=== PATIENT | female | born 1975 | race Caucasian/White ===

== ENCOUNTER 2023-08-02 18:24 | Inpatient (IN) | payer OTHER, SELFPAY ==
[2023-08-02] VITALS (17 sets, daily range): BP systolic 107–196; BP diastolic 72–99; PULSE 67; TEMP 36.6; O2SAT 92–100
--- NOTE | 2023-08-02 18:37 | CT_ITS ---
The [address] [address] Patient Name: HANG DALE MRN: [id number] date: 1975 Sex: F Assigned Patient Location: ER Current Patient Location: ER Accession/Order Number: [id number] Exam Date: 08/02/2023 22:15 Report Date: 08/02/2023 23:50 At the request of: DARON TINEO Procedure: CT abdomen pelvis w con EXAM: CT abdomen pelvis w con HISTORY: Acute upper abdominal pain, nausea, weakness. Colitis COMPARISON: No comparison abdominal imaging available at the time of dictation. TECHNIQUE: Multiple axial views CT abdomen pelvis performed after administration of 100 cc Omnipaque 300 IV contrast. Coronal sagittal reformats. Enteric contrast also administered. FINDINGS: Visualized lung bases demonstrate mild bibasilar linear lung atelectasis. Visualized cardiac apex is unremarkable. Mild hepatic steatosis and hepatomegaly. Gallbladder, pancreas, spleen, adrenal glands, kidneys, underdistended urinary bladder, and other pelvic structures are unremarkable by CT exam. Uterus is not seen or surgically absent. Appendix is not seen. Small hiatal hernia. Stomach is underdistended. No perigastric extraluminal free fluid/free air. Enteric contrast extends to the right lower quadrant ileum. Mild colonic diverticula without pericolonic inflammatory stranding. Moderate amount of gas and stool within the colon. No evidence for small bowel obstruction, large ascites, or free air. Retroperitoneal vasculature is unremarkable. No acute bony abnormality. CT/CT abdomen pelvis w con IMPRESSION: Mild colonic diverticula without pericolonic inflammatory stranding. Moderate amount of gas and stool within the colon. Small hiatal hernia. Stomach is underdistended. No perigastric extraluminal free fluid/free air. Mild hepatic steatosis and hepatomegaly. Electronically authenticated by: THEODORA BAEZ Date: 08/02/2023 23:50
[2023-08-02 19:12] LABS: Basophils Percent Auto 0.4 % (0.2-2.0); Eosinophils Absolute Auto 0.1 10^3/uL (0.0-0.7); Hematocrit 43.6 % (36.0-48.0); Hemoglobin 14.4 g/dL (12.0-16.0); Immature Granulocytes Abs Auto 0.05 10^3/uL (0.00-0.03); Immature Granulocytes Pct Auto 0.5 % (0.0-0.5); Lymphocytes Absolute Auto 2.4 10^3/uL (1.2-3.8); Lymphocytes Percent Auto 22.9 % (20.5-60.0); Mean Corpuscular Hemoglobin 31.7 pg (26.7-34.0); Monocytes Absolute Auto 0.5 10^3/uL (0.3-0.8); Monocytes Percent Auto 4.7 % (1.7-12.0); Neutrophils Absolute Auto 7.5 10^3/uL (1.4-6.5); Neutrophils Percent Auto 70.5 % (43.0-75.0); Platelet Count 237 10^3/uL (150-450); Red Blood Count 4.54 10^6/uL (4.20-5.40); Red Cell Distribution Width 13.5 % (11.0-15.0); White Blood Count 10.6 10^3/uL (4.0-11.0)
[2023-08-02 19:25] LABS: HCG Qualitative NEGATIVE (NEGATIVE)
[2023-08-02 19:31] LABS: Alanine Aminotransferase 12 U/L (14-59); Albumin Globulin Ratio 1.1; Albumin Level 3.9 g/dL (3.4-5.0); Alkaline Phosphatase 57 U/L (46-116); Anion Gap 12.6; Aspartate Amino Transferase 11 U/L (15-37); BUN Creatinine Ratio 14.5; Bilirubin Total 0.4 mg/dL (0.2-1.0); C Reactive Protein <0.50 mg/dL (<=0.50); Calcium 9.7 mg/dL (8.5-10.1); Carbon Dioxide 25.2 mmol/L (21.0-32.0); Chloride 105 mmol/L (98-107); Erythrocyte Sedimentation Rate 31 mm/hr (<=20); Estimated GFR (African America >60 (>=60); Estimated GFR (Non-African Ame >60 (>=60); Globulin 3.6 g/dL; Glucose 93 mg/dL (74-106); Potassium 3.8 mmol/L (3.5-5.1); Sodium 139 mmol/L (136-145); Total Protein 7.5 g/dL (6.4-8.2)
--- NOTE | 2023-08-02 19:34 | ED.GENADUL1 ---
Documented by User: PARVEEN Klein 08/02/23 21:55 HPI HPI - General Adult General Chief complaint: Abdominal Pain Stated complaint: COLLITIS SYMPTOMS Time Seen by Provider: 08/02/23 18:36 Source: patient Mode of arrival: Wheelchair Limitations: no limitations History of Present Illness HPI narrative: Patient is a 48-year-old female with a history of colitis sent to the emergency department by her PCP for evaluation, she was seen in the office immediately prior to arrival for a 2-week history of ongoing issues of abdominal pain and diarrhea consistent with previous colitis exacerbation. She states she has not had a bowel movement in the last 4 to 5 days. She has had no objective fevers. She reports associated vomiting. Most of her pain is in the epigastrium. She has had a previous hysterectomy. No medications taken prior to arrival. Patient was going to be a direct admission for her symptoms but her blood pressure was elevated so she could not be directly admitted. Related Data Home Medications ?Medication ?Instructions ?Recorded ?Confirmed doxepin 50 mg capsule 50 mg PO DAILY 08/02/23 08/02/23 Allergies Allergy/AdvReac Type Severity Reaction Status Date / Time prochlorperazine Allergy Mild tachycardia Verified 08/02/23 18:57 [From Compazine] promethazine [From Phenergan] Allergy Mild tachycardia Verified 08/02/23 18:57 Opioid HPI Opioid Management Most Recent Opioid Data: Last Pain Scale 5 08/02/23 23:11 Review of Systems ROS Constitutional Denies: fever or chills Ears, nose, mouth, and throat Denies: throat pain or nasal congestion Cardiovascular Denies: chest pain Respiratory Denies: shortness of breath or cough Gastrointestinal Reports: abdominal pain, nausea, vomiting, diarrhea and constipation Musculoskeletal Denies: back pain Integumentary/Breast Denies: rash Neurological Denies: headache Hematologic/Lymphatic Denies: easy bruising or easy bleeding Exam Narrative Exam Narrative: Gen.: Awake, alert, in no distress Head: Normocephalic, atraumatic ENT: Moist mucous membranes Respiratory: No respiratory distress, lungs clear bilaterally Cardio: Regular rate and rhythm Gastrointestinal: Abdomen is soft, nondistended and Diffusely tender to palpation with no focal areas of tenderness, erythematous rash under the left pannus consistent with candidal rash. No guarding or rebound on exam Extremities: Moves extremities equally Psych: Normal mood and affect Neuro: No focal neuro deficit Skin: Warm, dry, intact Constitutional Vital Signs, click to edit/add: Last Vital Signs Temp 97.8 F 08/02/23 18:51 Pulse 67 08/02/23 18:51 Resp 18 08/02/23 18:51 BP 107/76 08/02/23 23:31 Pulse Ox 95 08/02/23 20:47 O2 Del Method Room Air 08/02/23 18:51 Course Vital Signs Vital signs: Vital Signs Temperature 97.8 F 08/02/23 18:51 Pulse Rate 67 08/02/23 18:51 Respiratory Rate 18 08/02/23 18:51 Pulse Oximetry 98 08/02/23 18:51 Oxygen Delivery Method Room Air 08/02/23 18:51 Temperature 97.8 F 08/02/23 18:51 Pulse Rate 67 08/02/23 18:51 Respiratory Rate 18 08/02/23 18:51 Blood Pressure 107/76 08/02/23 23:31 Pulse Oximetry 95 08/02/23 20:47 Oxygen Delivery Method Room Air 08/02/23 18:51 Medical Decision Making MDM Narrative Medical decision making narrative: Patient given Dilaudid, Zofran and remedicated with additional Dilaudid, Zofran and Pepcid. Blood pressure has improved. Lab studies are grossly unremarkable. Patient was sent for CT with IV and oral contrast. She tolerated the oral contrast fairly well, CT is pending at this time. Anticipate admission to Dr. Orozco for further evaluation and treatment. 2154: Case is turned over to attending physician at this time. Medical Records Medical records reviewed: Yes I reviewed the patient's medical records Lab Data Lab results reviewed: Yes I reviewed the patient's lab results Labs: Lab Results 08/02/23 08/02/23 Range/Units 18:52 19:30 WBC 10.6 (4.0-11.0) 10^3/uL RBC 4.54 (4.20-5.40) 10^6/uL Hgb 14.4 (12.0-16.0) g/dL Hct 43.6 (36.0-48.0) % MCV 96.0 (81.0-99.0) fL MCH 31.7 (26.7-34.0) pg MCHC 33.0 (29.9-35.2) g/dL RDW 13.5 (11.0-15.0) % Plt Count 237 (150-450) 10^3/uL MPV 12.0 (9.5-13.5) fL Neut % (Auto) 70.5 (43.0-75.0) % Lymph % (Auto) 22.9 (20.5-60.0) % [place] % (Auto) 4.7 (1.7-12.0) % Eos % (Auto) 1.0 (0.9-7.0) % Baso % (Auto) 0.4 (0.2-2.0) % Neut # (Auto) 7.5 H (1.4-6.5) 10^3/uL Lymph # (Auto) 2.4 (1.2-3.8) 10^3/uL [place] # (Auto) 0.5 (0.3-0.8) 10^3/uL Eos # (Auto) 0.1 (0.0-0.7) 10^3/uL Baso # (Auto) 0.0 (0.0-0.1) 10^3/uL Abs Immat Gran (auto) 0.05 H (0.00-0.03) 10^3/uL Imm/Tot Granulo (auto) 0.5 (0.0-0.5) % ESR 31 H (<=20) mm/hr Sodium 139 (136-145) mmol/L Potassium 3.8 (3.5-5.1) mmol/L Chloride 105 (98-107) mmol/L Carbon Dioxide 25.2 (21.0-32.0) mmol/L Anion Gap 12.6 BUN 10.0 (7.0-18.0) mg/dL Creatinine 0.69 (0.55-1.02) mg/dL Est GFR ( Amer) >60 (>=60) Est GFR (Non-Af Amer) >60 (>=60) BUN/Creatinine Ratio 14.5 Glucose 93 (74-106) mg/dL Lactate 0.5 (0.4-2.0) mmol/L Calcium 9.7 (8.5-10.1) mg/dL Total Bilirubin 0.4 (0.2-1.0) mg/dL AST 11 L (15-37) U/L ALT 12 L (14-59) U/L Alkaline Phosphatase 57 (46-116) U/L C-Reactive Protein <0.50 (<=0.50) mg/dL Total Protein 7.5 (6.4-8.2) g/dL Albumin 3.9 (3.4-5.0) g/dL Globulin 3.6 g/dL Albumin/Globulin Ratio 1.1 Lipase 28.0 (16.0-77.0) U/L Serum HCG, Qual Negative (NEGATIVE) Urine Color Yellow (YELLOW) Urine Clarity Clear (CLEAR) Urine pH 6.0 (5.0-9.0) Ur Specific [place] 1.025 (1.005-1.025) Urine Protein Negative (NEG/TRACE) mg/dL Urine Glucose (UA) Negative (NEGATIVE) mg/dL Urine Ketones Trace A (NEGATIVE) mg/dL Urine Occult Blood Negative (NEGATIVE) Urine Nitrite Negative (NEGATIVE) Urine Bilirubin Negative (NEGATIVE) Urine Urobilinogen 0.2 (0.2-1.0) EU/dL Ur Leukocyte Esterase Negative (NEGATIVE) Discharge Plan Discharge Chief Complaint: Abdominal Pain Clinical Impression: Abdominal pain Patient Disposition: Admitted as Observation Documented by User: Roberto Cavanaugh MD 08/03/23 00:15 HPI HPI - General Adult General Chief complaint: Abdominal Pain Stated complaint: COLLITIS SYMPTOMS Time Seen by Provider: 08/02/23 18:36 Related Data Home Medications ?Medication ?Instructions ?Recorded ?Confirmed doxepin 50 mg capsule 50 mg PO DAILY 08/02/23 08/02/23 Allergies Allergy/AdvReac Type Severity Reaction Status Date / Time prochlorperazine Allergy Mild tachycardia Verified 08/02/23 18:57 [From Compazine] promethazine [From Phenergan] Allergy Mild tachycardia Verified 08/02/23 18:57 Opioid HPI Opioid Management Most Recent Opioid Data: Last Pain Scale 5 08/02/23 23:11 Exam Constitutional Vital Signs, click to edit/add: Last Vital Signs Temp 97.8 F 08/02/23 18:51 Pulse 67 08/02/23 18:51 Resp 18 08/02/23 18:51 BP 107/76 08/02/23 23:31 Pulse Ox 95 08/02/23 20:47 O2 Del Method Room Air 08/02/23 18:51 Course Vital Signs Vital signs: Vital Signs Temperature 97.8 F 08/02/23 18:51 Pulse Rate 67 08/02/23 18:51 Respiratory Rate 18 08/02/23 18:51 Pulse Oximetry 98 08/02/23 18:51 Oxygen Delivery Method Room Air 08/02/23 18:51 Temperature 97.8 F 08/02/23 18:51 Pulse Rate 67 08/02/23 18:51 Respiratory Rate 18 08/02/23 18:51 Blood Pressure 107/76 08/02/23 23:31 Pulse Oximetry 95 08/02/23 20:47 Oxygen Delivery Method Room Air 08/02/23 18:51 Medical Decision Making MDM Narrative Medical decision making narrative: Patient given Dilaudid, Zofran and remedicated with additional Dilaudid, Zofran and Pepcid. Blood pressure has improved. Lab studies are grossly unremarkable. Patient was sent for CT with IV and oral contrast. She tolerated the oral contrast fairly well, CT is pending at this time. Anticipate admission to Dr. Orozco for further evaluation and treatment. 2154: Case is turned over to attending physician at this time. care transferred at change of shift. CT pending. labs and CT results returned. Discussed with hospitalist and patient admitted to obs bed for ongoing abdominal pain/colitis Lab Data Labs: Lab Results 08/02/23 08/02/23 Range/Units 18:52 19:30 WBC 10.6 (4.0-11.0) 10^3/uL RBC 4.54 (4.20-5.40) 10^6/uL Hgb 14.4 (12.0-16.0) g/dL Hct 43.6 (36.0-48.0) % MCV 96.0 (81.0-99.0) fL MCH 31.7 (26.7-34.0) pg MCHC 33.0 (29.9-35.2) g/dL RDW 13.5 (11.0-15.0) % Plt Count 237 (150-450) 10^3/uL MPV 12.0 (9.5-13.5) fL Neut % (Auto) 70.5 (43.0-75.0) % Lymph % (Auto) 22.9 (20.5-60.0) % [place] % (Auto) 4.7 (1.7-12.0) % Eos % (Auto) 1.0 (0.9-7.0) % Baso % (Auto) 0.4 (0.2-2.0) % Neut # (Auto) 7.5 H (1.4-6.5) 10^3/uL Lymph # (Auto) 2.4 (1.2-3.8) 10^3/uL [place] # (Auto) 0.5 (0.3-0.8) 10^3/uL Eos # (Auto) 0.1 (0.0-0.7) 10^3/uL Baso # (Auto) 0.0 (0.0-0.1) 10^3/uL Abs Immat Gran (auto) 0.05 H (0.00-0.03) 10^3/uL Imm/Tot Granulo (auto) 0.5 (0.0-0.5) % ESR 31 H (<=20) mm/hr Sodium 139 (136-145) mmol/L Potassium 3.8 (3.5-5.1) mmol/L Chloride 105 (98-107) mmol/L Carbon Dioxide 25.2 (21.0-32.0) mmol/L Anion Gap 12.6 BUN 10.0 (7.0-18.0) mg/dL Creatinine 0.69 (0.55-1.02) mg/dL Est GFR ( Amer) >60 (>=60) Est GFR (Non-Af Amer) >60 (>=60) BUN/Creatinine Ratio 14.5 Glucose 93 (74-106) mg/dL Lactate 0.5 (0.4-2.0) mmol/L Calcium 9.7 (8.5-10.1) mg/dL Total Bilirubin 0.4 (0.2-1.0) mg/dL AST 11 L (15-37) U/L ALT 12 L (14-59) U/L Alkaline Phosphatase 57 (46-116) U/L C-Reactive Protein <0.50 (<=0.50) mg/dL Total Protein 7.5 (6.4-8.2) g/dL Albumin 3.9 (3.4-5.0) g/dL Globulin 3.6 g/dL Albumin/Globulin Ratio 1.1 Lipase 28.0 (16.0-77.0) U/L Serum HCG, Qual Negative (NEGATIVE) Urine Color Yellow (YELLOW) Urine Clarity Clear (CLEAR) Urine pH 6.0 (5.0-9.0) Ur Specific [place] 1.025 (1.005-1.025) Urine Protein Negative (NEG/TRACE) mg/dL Urine Glucose (UA) Negative (NEGATIVE) mg/dL Urine Ketones Trace A (NEGATIVE) mg/dL Urine Occult Blood Negative (NEGATIVE) Urine Nitrite Negative (NEGATIVE) Urine Bilirubin Negative (NEGATIVE) Urine Urobilinogen 0.2 (0.2-1.0) EU/dL Ur Leukocyte Esterase Negative (NEGATIVE) Discharge Plan Discharge Chief Complaint: Abdominal Pain Clinical Impression: Abdominal pain Patient Disposition: Admitted as Observation
[2023-08-02] MEDS: 0.9 % SODIUM CHLORIDE 1,000 ML 1000 ML IV (19:37)
[2023-08-02 19:38] LABS: Lactate/Lactic Acid 0.5 mmol/L (0.4-2.0)
[2023-08-02] MEDS: HYDROMORPHONE HCL 1 MG/ML CARTRIDGE IVP ×2 (19:40→21:26)
[2023-08-02] MEDS: ONDANSETRON PF 4 MG/2 ML VIAL IV ×2 (19:40→21:05)
[2023-08-02 20:30] LABS: Bilirubin Urine NEGATIVE (NEGATIVE); Blood Urine NEGATIVE (NEGATIVE); Clarity Urine CLEAR (CLEAR); Color Urine YELLOW (YELLOW); Glucose Urine UA NEGATIVE (NEGATIVE); Ketones Urine TRACE mg/dL (NEGATIVE); Leukocyte Esterase Urine NEGATIVE (NEGATIVE); Nitrite Urine NEGATIVE (NEGATIVE); Protein Urine NEGATIVE (NEG/TRACE); Specific Gravity Urine 1.025 (1.005-1.025); Urobilinogen Urine 0.2 EU/dL (0.2-1.0)
[2023-08-02 20:31] LABS: Urine Microscopic Indicated NO
[2023-08-02] MEDS: FAMOTIDINE/PF 20 MG/2 ML VIAL IV (21:05)
[2023-08-02] MEDS: KETOROLAC TROMETHAMINE 30 MG/ML VIAL IVP (21:26)
[2023-08-03] VITALS (8 sets, daily range): BP systolic 114–148; BP diastolic 56–89; PULSE 60–90; TEMP 36.4–36.8; O2SAT 93–96; BMI 30.5
[2023-08-03] MEDS: 0.9 % SODIUM CHLORIDE 1,000 ML 125 ML IV ×4 (01:50→23:36)
[2023-08-03] MEDS: CIPROFLOXACIN IN 5 % DEXTROSE 400 MG/200 ML PIGGYBACK 200 MG IV ×2 (01:50→13:25)
[2023-08-03] MEDS: ONDANSETRON PF 4 MG/2 ML VIAL IV ×3 (01:54→08:17)
[2023-08-03] MEDS: METRONIDAZOLE/SODIUM CHLORIDE 500 MG/100 ML PREMIX 100 MG IV ×4 (02:58→23:36)
[2023-08-03] MEDS: HYDROMORPHONE HCL 1 MG/ML CARTRIDGE IVP (04:18)
[2023-08-03 04:56] LABS: Basophils Percent Auto 0.4 % (0.2-2.0); Eosinophils Absolute Auto 0.1 10^3/uL (0.0-0.7); Eosinophils Percent Auto 0.7 % (0.9-7.0); Hematocrit 38.6 % (36.0-48.0); Hemoglobin 12.7 g/dL (12.0-16.0); Immature Granulocytes Abs Auto 0.02 10^3/uL (0.00-0.03); Immature Granulocytes Pct Auto 0.3 % (0.0-0.5); Lymphocytes Absolute Auto 1.4 10^3/uL (1.2-3.8); Lymphocytes Percent Auto 18.7 % (20.5-60.0); Mean Corpuscular HGB Conc 32.9 g/dL (29.9-35.2); Mean Corpuscular Hemoglobin 31.8 pg (26.7-34.0); Mean Corpuscular Volume 96.5 fL (81.0-99.0); Monocytes Absolute Auto 0.4 10^3/uL (0.3-0.8); Monocytes Percent Auto 5.7 % (1.7-12.0); Neutrophils Absolute Auto 5.4 10^3/uL (1.4-6.5); Neutrophils Percent Auto 74.2 % (43.0-75.0); Platelet Count 220 10^3/uL (150-450); Red Cell Distribution Width 13.2 % (11.0-15.0); White Blood Count 7.3 10^3/uL (4.0-11.0)
[2023-08-03 05:19] LABS: Alanine Aminotransferase 8 U/L (14-59); Albumin Globulin Ratio 1.1; Albumin Level 3.2 g/dL (3.4-5.0); Alkaline Phosphatase 48 U/L (46-116); Anion Gap 12.4; Aspartate Amino Transferase 9 U/L (15-37); Bilirubin Total 0.3 mg/dL (0.2-1.0); Calcium 8.9 mg/dL (8.5-10.1); Carbon Dioxide 23.6 mmol/L (21.0-32.0); Chloride 106 mmol/L (98-107); Estimated GFR (African America >60 (>=60); Estimated GFR (Non-African Ame >60 (>=60); Glucose 104 mg/dL (74-106); Sodium 138 mmol/L (136-145); Total Protein 6.2 g/dL (6.4-8.2)
--- NOTE | 2023-08-03 09:27 | XR_ITS ---
The [address] [address] Patient Name: HANG DALE MRN: [id number] date: 1975 Sex: F Assigned Patient Location: MS Current Patient Location: MS Accession/Order Number: [id number] Exam Date: 08/03/2023 11:09 Report Date: 08/03/2023 11:50 At the request of: LAITH CALDERON Procedure: XR acute abdomen series EXAMINATION: XR acute abdomen series HISTORY: ileus , abdominal pain COMPARISON: CT abdomen pelvis 08/02/2023 FINDINGS: LUNGS: No infiltrate, pneumothorax, or pleural effusion. MEDIASTINUM: No abnormal widening. BOWEL GAS PATTERN: Non-obstructed. Radiopaque contrast throughout colon from recent CT study; no abnormal dilation or suspicious fluid levels. FREE AIR: None. CALCIFICATIONS: None significant. BONES: No fracture or visible bone lesion. OTHER: Negative. XR/XR acute abdomen series IMPRESSION: 1. No acute cardiopulmonary process. 2. No acute or suspicious abdominal findings. Electronically authenticated by: TITI WETZEL Date: 08/03/2023 11:50
--- NOTE | 2023-08-03 09:29 | P.HP_ITS ---
HPI H&P: HPI History of Present Illness Chief complaint: COLLITIS SYMPTOMS ABD PAIN Narrative: Patient was seen and evaluated in the office yesterday. Increasing abdominal pain. Nausea vomiting. In office blood pressure significantly elevated and unable to make as a direct admission. She was referred to ER where her blood pressure was significantly elevated at that time but is improved this morning. CT scan evaluation suggest colitis. She does have a history of colitis. I saw patient up on the medical surgical floor this morning. She still very uncomfortable from a pain standpoint. Nausea vomiting. Vomiting and nausea increased after exam. Opioid HPI Opioid Management Most Recent Opioid Data: Last Pain Scale 7 08/03/23 08:22 Last Pain Assessment 08/03/23 09:04 Last MAR Pain Assessment 08/03/23 05:33 Last ORT Total Score 0 08/03/23 00:47 Last ORT Risk Category Low Risk 08/03/23 00:47 Review of Systems ROS Status of ROS 10 or more systems reviewed and unremark able except as noted in history and below PFSH PFSH Social History Highest level of school completed/degree received: high school graduate Do you think of yourself as: straight/heterosexual Gender Identity: female Meds Home Medications and Allergies Home Medications ?Medication ?Instructions ?Recorded ?Confirmed ?Type doxepin 50 mg capsule 50 mg PO DAILY 08/02/23 08/02/23 History Allergies Allergy/AdvReac Type Severity Reaction Status Date / Time prochlorperazine Allergy Mild tachycardia Verified 08/02/23 18:57 [From Compazine] promethazine [From Phenergan] Allergy Mild tachycardia Verified 08/02/23 18:57 Exam Constitutional Vital Signs, click to edit/add: Last Vital Signs Temp 97.6 F 08/03/23 08:22 Pulse 79 08/03/23 08:22 Resp 18 08/03/23 08:22 BP 148/89 H 08/03/23 08:22 Pulse Ox 94 L 08/03/23 08:22 O2 Del Method Room Air 08/03/23 08:22 Common normals: apparent distress (Nausea and abdominal pain) Respiratory Common normals: normal respiratory effort Cardio Common normals: regular rate and regular rhythm GI Common normals: Normal to inspection, nondistended, normoactive bowel sounds present, soft to palpation and no masses; tender Palpation: tender (To display) and rebound tenderness present Results Labs Labs: Short CBC 08/02/23 08/03/23 Range/Units 18:52 04:26 WBC 10.6 7.3 (4.0-11.0) 10^3/uL Hgb 14.4 12.7 (12.0-16.0) g/dL Hct 43.6 38.6 (36.0-48.0) % Plt Count 237 220 (150-450) 10^3/uL BMP 08/02/23 08/03/23 18:52 04:26 Sodium 139 138 Potassium 3.8 4.0 Chloride 105 106 Carbon Dioxide 25.2 23.6 BUN 10.0 12.0 Creatinine 0.69 0.63 Glucose 93 104 Calcium 9.7 8.9 Liver Function 08/02/23 08/03/23 Range/Units 18:52 04:26 Total Bilirubin 0.4 0.3 (0.2-1.0) mg/dL AST 11 L 9 L (15-37) U/L ALT 12 L 8 L (14-59) U/L Alkaline Phosphatase 57 48 (46-116) U/L Albumin 3.9 3.2 L (3.4-5.0) g/dL Urine 08/02/23 Range/Units 19:30 Urine Color Yellow (YELLOW) Urine Clarity Clear (CLEAR) Urine pH 6.0 (5.0-9.0) Ur Specific [place] 1.025 (1.005-1.025) Urine Protein Negative (NEG/TRACE) mg/dL Urine Glucose (UA) Negative (NEGATIVE) mg/dL Assessment and Plan Assessment and Plan (1) Abdominal pain: Plan Uncontrolled hypertension with hypertensive urgency secondary to acute colitis. Continue with antibiotics. 1 dose of Decadron. Repeat acute abdominal series concern for ileus. Continue with IV fluids. Will try Reglan for nausea. Patient not improved to the point of being able to be discharged today. Hypertensive urgency-improved this morning. Continue to monitor Admission status: Patient placed in observation status overnight. Nausea vomiting not improved. She is not stable for discharge to home. Her medically necessary treatment will span 2 midnights. Changing patient to inpatient status.
--- NOTE | 2023-08-03 10:32 | CM.NOTE ---
Rounds made with Dr. Orozco, pt continues with nausea and vomiting unable to eat or drink. No discharge today.
[2023-08-03] MEDS: METOCLOPRAMIDE HCL 10 MG/2 ML VIAL IVP ×3 (10:43→23:36)
[2023-08-03] MEDS: PANTOPRAZOLE SODIUM 40 MG VIAL IV (10:43)
[2023-08-03] MEDS: DEXAMETHASONE SOD PHOS 4 MG/ML VIAL 10 MG IV (10:43)
[2023-08-03] MEDS: DIPHENHYDRAMINE HCL 50 MG/ML (1ML) VIAL 25 MG IV (15:07)
[2023-08-03] MEDS: LORAZEPAM 2 MG/ML VIAL 0.5 MG IV (15:08)
[2023-08-03] MEDS: DOXEPIN HCL 25 MG CAPSULE 50 MG PO (20:50)
[2023-08-04] MEDS: CIPROFLOXACIN IN 5 % DEXTROSE 400 MG/200 ML PIGGYBACK 200 MG IV (01:54)
[2023-08-04 03:58] VITALS: BP 122/83; PULSE 74; TEMP 36.8; O2SAT 94
[2023-08-04] MEDS: METOCLOPRAMIDE HCL 10 MG/2 ML VIAL IVP ×2 (04:52→11:08)
[2023-08-04 05:24] LABS: Basophils Percent Auto 0.3 % (0.2-2.0); Eosinophils Percent Auto 0.2 % (0.9-7.0); Hematocrit 37.3 % (36.0-48.0); Hemoglobin 12.3 g/dL (12.0-16.0); Immature Granulocytes Abs Auto 0.03 10^3/uL (0.00-0.03); Immature Granulocytes Pct Auto 0.3 % (0.0-0.5); Lymphocytes Absolute Auto 1.7 10^3/uL (1.2-3.8); Lymphocytes Percent Auto 19.3 % (20.5-60.0); Mean Corpuscular Hemoglobin 31.4 pg (26.7-34.0); Mean Corpuscular Volume 95.2 fL (81.0-99.0); Mean Platelet Volume 11.8 fL (9.5-13.5); Monocytes Absolute Auto 0.6 10^3/uL (0.3-0.8); Monocytes Percent Auto 6.6 % (1.7-12.0); Neutrophils Absolute Auto 6.5 10^3/uL (1.4-6.5); Neutrophils Percent Auto 73.3 % (43.0-75.0); Platelet Count 200 10^3/uL (150-450); Red Blood Count 3.92 10^6/uL (4.20-5.40); Red Cell Distribution Width 13.3 % (11.0-15.0); White Blood Count 8.8 10^3/uL (4.0-11.0)
[2023-08-04 05:43] LABS: Alanine Aminotransferase 9 U/L (14-59); Albumin Globulin Ratio 1.1; Alkaline Phosphatase 44 U/L (46-116); Anion Gap 13.6; Aspartate Amino Transferase 8 U/L (15-37); BUN Creatinine Ratio 13.8; Bilirubin Total 0.3 mg/dL (0.2-1.0); Carbon Dioxide 22.9 mmol/L (21.0-32.0); Chloride 108 mmol/L (98-107); Estimated GFR (African America >60 (>=60); Estimated GFR (Non-African Ame >60 (>=60); Globulin 2.8 g/dL; Glucose 103 mg/dL (74-106); Potassium 3.5 mmol/L (3.5-5.1); Sodium 141 mmol/L (136-145); Total Protein 5.8 g/dL (6.4-8.2)
[2023-08-04 07:57] VITALS: PULSE 76
[2023-08-04 08:00] VITALS: BP 124/73; PULSE 76; TEMP 36.6
--- NOTE | 2023-08-04 09:35 | P.DS_ITS ---
DS: Providers Provider Date of admission: 08/03/23 09:28 Primary care physician: Yossi Orozco MD Consults: 08/03/23 Consult to Dietitian Routine Reason for consultation: Colitis flare up 08/03/23 14:07 Consult to Pharmacy Routine Consulting Provider: Reason for consultation: Does compazine allergy cross react with reglan DS: Diagnosis Discharge Diagnosis (1) Abdominal pain: Assessment and plan: Admission findings: Uncontrolled hypertension with hypertensive urgency secondary to acute colitis. Improving at the time of discharge Hypertensive urgency-resolved at the time of discharge Admission status: Patient placed in observation status overnight. Nausea vomiting not improved. She is not stable for discharge to home. Her medically necessary treatment will span 2 midnights. Inpatient status ? DS: Summary Hospital Course Hospital Course: Patient was seen and evaluated in the office with increasing abdominal pain. Recommended the ER due to the hypertensive urgency. Blood pressure elevated there but was improved with IV medications. Her colitis though symptoms persisted and she had recurrent nausea vomiting yesterday morning. Unable to be discharged. Medications were adjusted yesterday with improvement in her symptoms. She looks much improved today. The plan is to have her eat breakfast and lunch and if she tolerates that she can be discharged home in improving condition. Medications see list. Follow-up with me in the office as needed. Status at Discharge Overall status at discharge: patient is not back to baseline Time Spent with Patient Time attestation: Total time spent providing and/or coordinating discharge services: Time spent: greater than 30 minutes Exam Constitutional Vital Signs, click to edit/add: Last Vital Signs Temp 98 F 08/04/23 08:00 Pulse 76 08/04/23 08:00 Resp 12 08/04/23 08:00 BP 124/73 08/04/23 08:00 Pulse Ox 94 L 08/04/23 03:58 O2 Del Method Room Air 08/04/23 08:00 Common normals: no apparent distress Respiratory Common normals: normal respiratory effort Cardio Common normals: regular rate and regular rhythm GI Common normals: Normal to inspection, nondistended, normoactive bowel sounds present, soft to palpation and no masses; tender (Minimal tenderness) Palpation: tender (Minimal tenderness); no rebound tenderness present DS: Data Data Completed and Pending Labs on day of discharge: Labs from last 24 hours 08/04/23 04:48 WBC 8.8 RBC 3.92 L Hgb 12.3 Hct 37.3 MCV 95.2 MCH 31.4 MCHC 33.0 RDW 13.3 Plt Count 200 MPV 11.8 Neut % (Auto) 73.3 Lymph % (Auto) 19.3 L [place] % (Auto) 6.6 Eos % (Auto) 0.2 L Baso % (Auto) 0.3 Neut # (Auto) 6.5 Lymph # (Auto) 1.7 [place] # (Auto) 0.6 Eos # (Auto) 0.0 Baso # (Auto) 0.0 Abs Immat Gran (auto) 0.03 Imm/Tot Granulo (auto) 0.3 Sodium 141 Potassium 3.5 Chloride 108 H Carbon Dioxide 22.9 Anion Gap 13.6 BUN 9.0 Creatinine 0.65 Est GFR ( Amer) >60 Est GFR (Non-Af Amer) >60 BUN/Creatinine Ratio 13.8 Glucose 103 Calcium 9.0 Total Bilirubin 0.3 AST 8 L ALT 9 L Alkaline Phosphatase 44 L Total Protein 5.8 L Albumin 3.0 L Globulin 2.8 Albumin/Globulin Ratio 1.1 Discharge Plan Discharge Disposition: Home, Self-Care Discharge Medications: New ciprofloxacin HCl [Cipro] 500 mg tablet 500 mg PO Q12H Qty: 20 0RF metronidazole 500 mg tablet 500 mg PO Q8H Qty: 30 0RF prednisone 10 mg tablet 40 mg PO DAILY Qty: 32 0RF Rx Instructions: 4/day for 3 days, 3/day for 3 days, 2/day for 3 days, 1/day for 3 days, 1/2 /day for 4 days ondansetron 4 mg tablet,disintegrating 4 mg PO Q6H PRN (Reason: nausea and vomiting) Qty: 20 0RF Continued doxepin 50 mg capsule 50 mg PO DAILY Print Language: [place] Patient Instructions: Ciprofloxacin (By mouth), Prednisone (By mouth), Metronidazole (By mouth), Ondansetron (By mouth), Colitis (ED) Forms: Portal Instructions Follow Up Appointments: No follow up needed per Dr. Orozco. Please contact his office if any issues arise. [phone]
[2023-08-04] MEDS: PANTOPRAZOLE SODIUM 40 MG VIAL IV (09:37)
[2023-08-04] MEDS: METRONIDAZOLE/SODIUM CHLORIDE 500 MG/100 ML PREMIX 100 MG IV (10:00)
--- NOTE | 2023-08-04 10:30 | CM.NOTE ---
Rounds made with Dr. Orozco. Potential discharge to home later today if tolerates bland diet. Almita in agreement with plan.
[2023-08-04 11:39] VITALS: BP 138/78; PULSE 85; TEMP 36.8; O2SAT 96
== END 2023-08-04 13:27 | disposition home or self-care (01) | DRG 392 ==
LOC: ER 08-03 00:15 → MS 08-03 00:43
PROVIDERS: Nurse Practitioner Acute Care; Physician Assistant; Admitting Provider Family Medicine; Emergency Provider Internal Medicine; PCP Family Medicine; Visit Provider Family Medicine
DX: K52.9 Noninfective gastroenteritis and colitis, unspecified (principal); I16.0 Hypertensive urgency; I10 Essential (primary) hypertension; Z90.710 Acquired absence of both cervix and uterus
CPT/HCPCS: 36415; 74022; 74177; 80053; 81003; 83605; 83690; 84703; 85025; 85652; 86140; 87507; 96361; 96365; 96366; 96367; 96375; 96376; 99285; J1094; J1170; Q9967